=== PATIENT | female | born 1955 | race Caucasian/White ===

== ENCOUNTER 2017-08-08 16:55 | Emergency (ER) | payer OTHER ==
[~2017-08-08] VITALS: Ht 167.6 cm; Wt 107.0 kg
[~2017-08-08 16:55] MED LIST: OXYC7.5T65 PO
[2017-08-08 16:58] VITALS: TEMP 36.7; Ht 167.6 cm; Wt 107.0 kg
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
[2017-08-08] MEDS ORDERED: CYAN10005 PO (17:45)
[2017-08-08] MEDS ORDERED: CHOLDRO3 PO (17:45)
[2017-08-08] MEDS ORDERED: HYDR-3983 PO (17:45)
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
[2017-08-08 19:07] VITALS: BP 177/90; PULSE 71; O2SAT 100
== END 2017-08-08 19:08 | disposition home or self-care (01) ==
LOC: C.EDB 16:57 → C.EDA 19:08
DX: S09.90XA Unspecified injury of head, initial encounter (principal); V43.62XA Car passenger injured in collision with other type car in traffic accident, initial encounter; Y92.410 Unspecified street and highway as the place of occurrence of the external cause; Z85.42 Personal history of malignant neoplasm of other parts of uterus; Z85.858 Personal history of malignant neoplasm of other endocrine glands; Z80.9 Family history of malignant neoplasm, unspecified; Z98.84 Bariatric surgery status

== ENCOUNTER → 2017-08-20 | Outpatient (CLI) | payer OTHER ==
[~2017-08-20] MED LIST changes: +CHOLDRO3 PO; +CYAN10005 PO; +HYDR-3983 PO; -OXYC7.5T65 PO
--- NOTE | 2017-08-20 10:09 | DIAGNOSTIC IMAGING REPORT ---
CERVICAL WITHOUT CONTRAST HISTORY: Pain. Neuropathy. CERVICAL RADICULAR PAIN TECHNIQUE: Multiplanar multisequence MRI of the cervical spine was performed without the use of contrast. COMPARISON STUDY: None. FINDINGS: Findings consistent with an anterior C6-C7 fusion. Degenerative disc change C5-C6 and to a lesser extent throughout the remainder of the cervical region. Signal characteristics of the cervical cord are unremarkable. C2-C3: No significant central canal or neural foraminal narrowing. C3-C4: Minimal central disc bulge. No impact of the cervical cord or neural foramina. C4-C5: Minimal broad-based disc bulge. Contact with but no significant deformity of the cervical cord. C5-C6: Focal left posterior disc herniation. Focal impact left anterior aspect cervical cord. Significant narrowing left neural foramina. Minimal narrowing right neuroforamina. C6-C7: Right central bulging disc. Minimal impact anterior cervical cord. Moderate narrowing right neuroforamina. C7-T1: No significant central canal or neural foraminal narrowing. IMPRESSION: 1. Anterior cervical fusion C6-C7 2. Focal left posterior disc herniation C5-C6 with focal impact upon the anterior cervical cord and significant narrowing left neuroforamina. 3. Right central bulging disc C6-C7 The above report was generated using voice recognition software. It may contain grammatical, syntax or spelling errors. Electronically signed by: Norman Escobar M.D. 08/20/2017 10:07 AM Dictated Date/Time: 08/20/2017 10:01 AM
== END | disposition home or self-care (01) ==
LOC: C.MRI 09:00
PROVIDERS: ATTEND Pain Medicine Interventional Pain Medicine
DX: M50.10 Cervical disc disorder with radiculopathy, unspecified cervical region (principal); M43.22 Fusion of spine, cervical region

== ENCOUNTER 2017-12-07 14:08 | Emergency (ER) | payer OTHER ==
[~2017-12-07 14:08] MED LIST changes: -CHOLDRO3 PO; -HYDR-3983 PO
[2017-12-07 14:13] VITALS: TEMP 36.7; Ht 167.6 cm
[2017-12-07 15:12] LABS: BASO % 0.2 %; BASO ABS # 0.03 K/uL (0-0.2); EOS % 0.3 %; EOS ABS # 0.05 K/uL (0-0.5); HEMOGLOBIN 10.4 g/dL (12.0-16.0); IG# 0.03 K/uL (0.00-0.02); LYMPH % 17.9 %; LYMPH ABS # 2.87 K/uL (1.2-3.4); MEAN CELL VOLUME 76.7 fL (80-100); MEAN CORPUSCULAR HEMOGLOBIN 24.2 pg (25-34); MEAN CORPUSCULAR HGB CONC 31.5 g/dl (32-36); MEAN PLATELET VOLUME 9.5 fL (7.4-10.4); MONO % 10.5 %; MONO ABS # 1.69 K/uL (0.11-0.59); NEUT % 70.9 %; NEUT ABS # 11.36 K/uL (1.4-6.5); PLATELET COUNT 342 K/uL (130-400); RED CELL DISTRIBUTION WIDTH CV 16.3 % (11.5-14.5); RED CELL DISTRIBUTION WIDTH SD 45.3 fL (36.4-46.3); WHITE BLOOD COUNT 16.03 K/uL (4.8-10.8)
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
[2017-12-07 15:39] LABS: ALT/SGPT 14 U/L (12-78); AST/SGOT 17 U/L (15-37); BLOOD UREA NITROGEN 13 mg/dl (7-18); CALCIUM 8.7 mg/dl (8.5-10.1); CARBON DIOXIDE 26 mmol/L (21-32); GLUCOSE 85 mg/dl (70-99); POTASSIUM 3.2 mmol/L (3.5-5.1); SODIUM 140 mmol/L (136-145)
[2017-12-07 15:42] LABS: ALKALINE PHOSPHATASE 94 U/L (45-117); TOTAL PROTEIN 7.2 gm/dl (6.4-8.2)
[2017-12-07] MEDS ORDERED: MoRPHine SULFATE 2 MG/ML CARP IV STA ×2 (16:18→17:36)
--- NOTE | 2017-12-07 16:30 | DIAGNOSTIC IMAGING REPORT ---
L FOREARM 2 VIEWS ROUTINE, L HAND MIN 3 VIEWS ROUTINE HISTORY: 61 years-old Female Fall, L wrist pain acute left hand and wrist pain status post fall COMPARISON: None available TECHNIQUE: 2 views of the left forearm and 3 views of the left hand FINDINGS: FOREARM: Bones are mildly demineralized. Mild soft tissue swelling of the mid dorsal forearm without acute fracture, dislocation or opaque foreign body. HAND: Bones are mildly demineralized. Mild radiocarpal with mild to moderate triscaphe and first carpometacarpal osteoarthritis. At least mild degenerative changes are seen throughout the interphalangeal joints. There is no acute fracture or dislocation identified. There is moderate soft tissue swelling about the dorsal wrist with an ill-defined lucency of the dorsal distal radius seen only on the lateral projection. IMPRESSION: 1. Moderate soft tissue swelling about the wrist without acute displaced fracture or dislocation identified. Ill-defined linear lucency about the distal radial metaphysis seen only on the lateral projection suggests trabecular markings with acute nondisplaced fracture thought to be less likely. Correlate with point tenderness. 2. Mildly demineralized appearance of the bones. 3. Degenerative changes as above. The above report was generated using voice recognition software. It may contain grammatical, syntax or spelling errors. Electronically signed by: Manjit Esquivel M.D. 12/07/2017 4:29 PM Dictated Date/Time: 12/07/2017 4:25 PM
--- NOTE | 2017-12-07 16:57 | DIAGNOSTIC IMAGING REPORT ---
SACRUM COCCYX MIN 2 VIEWS CLINICAL HISTORY: 61 years-old Female presenting with Fall, tailbone pain. TECHNIQUE: Frontal and lateral views of the sacrum and coccyx were obtained. COMPARISON: None. FINDINGS: Sacroiliac joints symmetric and congruent. Arcuate lines intact. Osteopenia suspected. Poor visualization of the coccyx. Allowing for this, no gross malalignment at the sacrococcygeal articulation. No displaced fracture is apparent. Visualized portion of the bony pelvis intact. Bilateral hips congruent. No radiographic soft tissue abnormality. IMPRESSION: Suspected osteopenia limits evaluation for fracture allowing for this, no gross evidence of sacrococcygeal fracture. If there is continuing clinical concern, CT should be obtained given the limited sensitivity of these radiographs. Electronically signed by: Palomo Meehan M.D. 12/07/2017 4:56 PM Dictated Date/Time: 12/07/2017 4:55 PM
[2017-12-07] MEDS ORDERED: POTASSIUM CHLORIDE 20 MEQ TABCR PO STA (17:36)
[2017-12-07] MEDS ORDERED: HYDR-5688 PO (17:41)
[2017-12-07] MEDS ORDERED: CYAN100048 SQ (17:41)
[2017-12-07] MEDS ORDERED: SERT-234 PO (17:41)
[2017-12-07] MEDS ORDERED: PEDICHW50 PO (17:41)
[2017-12-07] MEDS ORDERED: GABA-113 PO (17:41)
[2017-12-07] MEDS ORDERED: HYDR-3983 PO (17:45)
[2017-12-07] MEDS ORDERED: CHOLDRO3 PO (17:45)
[2017-12-07] MEDS ORDERED: POTASSIUM CHLORIDE 10 MEQ TABCR ONE (17:48)
[2017-12-07 18:21] VITALS: BP 139/87; PULSE 80; O2SAT 96
== END 2017-12-07 18:15 | disposition home or self-care (01) ==
LOC: C.EDB 14:10 → C.EDA 18:15
DX: S69.92XA Unspecified injury of left wrist, hand and finger(s), initial encounter (principal); W18.09XA Striking against other object with subsequent fall, initial encounter; D64.9 Anemia, unspecified; E87.6 Hypokalemia; M53.3 Sacrococcygeal disorders, not elsewhere classified; Z85.42 Personal history of malignant neoplasm of other parts of uterus; Z80.9 Family history of malignant neoplasm, unspecified; Z79.899 Other long term (current) drug therapy

== ENCOUNTER 2022-09-27 18:49 | Inpatient (IN) ==
[2022-09-27] MEDS ORDERED: MoRPHine SULFATE 4 MG/ML 1 ML CARP\\VIAL IV STA ×2 (19:10→20:38)
[2022-09-27] MEDS ORDERED: ONDANSETRON INJ 2 MG/ML 2 ML VIAL IV STA (19:10)
--- NOTE | 2022-09-27 19:13 | Emergency Department Note ---
Impression & Plan Fracture of lumbar spine ADMIT ED Provider Note HPI: The patient is a 66-year-old female who presents the emergency department with a chief complaint of left foot pain and lower back pain that occurred after she fell off of the toilet today. Patient states that she got up from the toilet today and her left foot had a sensation as if it had fallen asleep, she then fe ll and she got up and twisted her left foot feeling a "pop" in the lateral aspect of the foot. Patient states she then fell on her buttocks and felt some abnormal sensation in her lower/mid back that was acutely painful. On arrival here to the ED the patient is alert, she does not have any focal deficits, she is noted to be hypertensive and states she does have acute pain in both her left foot as well as her mid back area. Motor and sensory function is intact distally in the lower extremities on arrival. ROS: - Per HPI *Outpatient medications and allergy history reviewed. *Pertinent external medical records reviewed. PE: General: Alert, obese HEENT: Normocephalic, trachea midline Eyes: Extraocular eye movement is intact, no scleral erythema Pulmonary: Clear to auscultation bilaterally, no wheezing Cardio: Regular rate and rhythm GI: Abdomen is soft to palpation : No suprapubic tenderness MSK: No evidence of trauma or malformation of the extremities, no edema, there is some midline tenderness in the area of the thoracolumbar junction to palpation without step-off deformity or fluctuance, contusion with hematoma to the lateral aspect of the left foot, palpable dorsalis pedis pulse is appreciated in the left lower extremity, motor function is intact distally in the left foot Skin: No evidence of rash Neuro: Alert, no focal deficits Psychiatric: Cooperative lunchroom monitor: (As interpreted by myself): - An order was placed for continuous cardiac monitoring - Patient was noted to be in sinus rhythm with a rate of 70 Interventions provided in ED: -IV morphine, IV Zofran, IV fluid bolus Differential Diagnosis: Metatarsal fracture, lumbar spine fracture, pelvic fracture, intra-abdominal trauma, ankle fracture, hypertensive emergency,, amongst other potential pathologies. Medical Decision Making: Patient presented to the emergency department with acute lower back pain as well as left foot pain after she fell off the toilet today. On arrival here to the ED the patient is alert, she is hypertensive, she is otherwise in no acute distress and she is saturating well on room air. IV was established and lab work ordered, patient was given a dose of IV morphine for pain as well as Zofran and IV fluids. CT imaging of the thoracic spine, lumbar spine, as well as x-ray imaging of the left foot were ordered. CT imaging of the lumbar spine does show evidence of compression fracture at L1, no evidence of any involvement of the posterior elements. No evidence of thoracic spine fracture or fracture at other levels of the lumbar spine. X-ray imaging per my interpretation shows evidence of a dancers fracture/styloid fracture of the fifth metatarsal of the left foot. Patient will be placed in a walking boot with weightbearing as tolerated. Following IV morphine here in the ED patient states her pain is much improved, she appears much more comfortable on reassessment. I discussed all of the above findings with the patient, at this time given her back pain and need for walking boot with fifth metatarsal fracture, patient is requesting admission for pain control, PT OT, and orthopedic consultation in regards to lumbar spine compression fracture at L1. Case was discussed with on-call spinal surgery, Dr. Lucio, who was in agreement for consultation, based off imaging performed tonight there would not be an indication for emergent surgical intervention. He is in agreement to see the patient for routine consultation. Case was then discussed with on-call hospitalist, Dr. Martin, and the patient was placed for admission in stable con dition. Consultants: -Orthopedic surgery, Dr. Lucio -Hospitalist service, Dr. Martin Disposition discussion held by myself with: Patient Diagnosis: 1. L1 compression fracture 2. 5th metatarsal fracture, L foot, distal/styloid 3. Mechanical fall 4. Ambulatory dysfunction Disposition: ADMIT Norman Miranda DO Emergency Medicine Past Med/Surg History Medical History Anxiety Blindness "blind spots" Chronic back pain Depression Hypertension Migraine Morbid obesity Osteoarthritis Peptic ulcer disease hx Post traumatic stress disorder Sleep apnea does not use machine. Uterine cancer Surgical History Cervical vertebral fusion C4-C5 ARTHROPLASTY, C5-C6 FUSION H/O gastric bypass x2 History of back surgery back nerve ablations History of biopsy of temporal artery History of cholecystectomy OPEN History of colonoscopy History of esophagogastroduodenoscopy (EGD) History of hysterectomy History of left cataract surgery Family History Mother Lung cancer Brother Diabetes Social History Smoking Status: Never smoker Cigarettes Per Day: 1985; Second Hand Exposure: No; Hx Alcohol Use: Yes Alcohol type: wine Hx Substance Use: No Preferred Language: Ukrainian Communication Ability: Effective Elastic Attacher Overlock Required: No Beliefs That Will Affect Care: None and Jew Jew Beliefs: IN EVENT OF WOULD LIKE LAST RIGHT Current Living Situation: Spouse Feels Safe at Home: Yes Assistive Devices: Cane, Denture - Upper, Glasses and Mechanical Lift Allergies Allergies Allergy/AdvReac Type Severity Reaction Status Date / Time clindamycin Allergy Intermediate ITCHING Verified 09/27/22 20:23 iodine Allergy Intermediate ITCHY RASH Verified 09/27/22 20:23 Penicillins Allergy Intermediate HIVES Verified 09/27/22 20:23 povidone-iodine Allergy Intermediate ITCHY RASH Verified 09/27/22 20:23 [From Betadine] shellfish derived Allergy Intermediate TINGLING Verified 09/27/22 20:23 OF TONGUE ibuprofen AdvReac Intermediate HX OF Verified 09/27/22 20:23 STOMACH ULCERS--Gastrointestinal Upset NSAIDS (Non-Steroidal AdvReac Intermediate HX STOMACH Verified 09/27/22 20:23 Anti-Inflamma ULCERS---Gastrointestinal Upset scented lotions/perfumes Allergy Intermediate itching Uncoded 09/27/22 20:23 Home Meds Home Medications Medication Instructions Recorded Confirmed hydrocodone 5 mg-acetaminophen 325 1 tab PO Q3H PRN Severe Pain 01/24/19 09/27/22 mg tablet (Scale Score 7-10) sumatriptan succinate 100 mg tablet 100 mg PO UD PRN Migraine Headache 01/24/19 09/27/22 cyanocobalamin (vitamin B-12) 1,000 mcg IM MONTHLY 10/01/20 09/27/22 1,000 mcg/mL injection solution galcanezumab-gnlm 120 mg/mL 120 mg subcut MONTHLY 10/01/20 09/27/22 subcutaneous pen injector (Emgality Pen) morphine 15 mg tablet,extended 15 mg PO Q12H 10/01/20 09/27/22 release omeprazole 20 mg capsule,delayed 20 mg PO DAILY 10/01/20 09/27/22 release bupropion HCl 100 mg tablet 100 mg PO TID 09/27/22 09/27/22 cholecalciferol (vitamin D3) 50 50 mcg PO DAILY 09/27/22 09/27/22 mcg (2,000 unit) capsule (Vitamin D3) cyclobenzaprine 5 mg tablet 5 mg PO HS PRN MUSCLE SPASMS 09/27/22 09/27/22 diclofenac sodium 1 % topical gel 4 g topical QID PRN Pain 09/27/22 09/27/22 venlafaxine 37.5 mg tablet 37.5 mg PO TID 09/27/22 09/27/22 Results & Data (ED) Vital Signs Vital Signs - 24 hr 09/27/22 18:54 09/27/22 19:00 09/27/22 19:34 Temperature 36.8 C Temperature Source Oral Pulse Rate 72 72 Pulse Rate [Right Finger] 73 Respiratory Rate 20 16 Respiratory Effort / Characteristics Non-Labored Spontaneous Respiratory Depth Normal Respiratory Pattern Regular Blood Pressure 230/112 H Blood Pressure [Right Arm] Blood Pressure Mean 151 Blood Pressure Mean [Right Arm] Pulse Oximetry 98 97 Oxygen Delivery Method Room Air Room Air Sepsis Recent Fever Within 48 Hours No Sepsis New/Unexplained Change in Mental Status N/A Sepsis Action Taken by Nursing No Action Required 09/27/22 20:16 Temperature Temperature Source Pulse Rate Pulse Rate [Right Finger] 69 Respiratory Rate 16 Respiratory Effort / Characteristics Respiratory Depth Respiratory Pattern Blood Pressure Blood Pressure [Right Arm] 171/75 H Blood Pressure Mean Blood Pressure Mean [Right Arm] 107 Pulse Oximetry 98 Oxygen Delivery Method Room Air Sepsis Recent Fever Within 48 Hours Sepsis New/Unexplained Change in Mental Status Sepsis Action Taken by Nursing Laboratory Data 09/27/22 18:58 09/27/22 18:58 Lab Results 09/27/22 09/27/22 09/27/22 Range/Units 18:58 18:58 18:58 WBC 7.95 (4.8-10.8) K/ul RBC 4.51 (4.20-5.40) M/uL Hgb 13.6 (12.0-16.0) g/dl Hct 42.1 (37.0-47.0) % MCV 93.3 (80.0-100.0) fL MCH 30.2 (25.0-34.0) pg MCHC 32.3 (32.0-36.0) g/dL RDW Std Deviation 45.5 (36.4-46.3) fL RDW Coeff of David 13.3 (11.5-14.5) % Plt Count 317 (130-400) K/uL MPV 9.9 (9.4-12.4) fL Immature Gran % (Auto) 0.9 % Neut % (Auto) 73.4 % Lymph % (Auto) 15.8 % Sharp % (Auto) 6.5 % Eos % (Auto) 2.6 % Baso % (Auto) 0.8 % Neut # (Auto) 5.83 (1.40-6.50) K/uL Lymph # (Auto) 1.26 (1.2-3.4) K/uL Sharp # (Auto) 0.52 (0.11-0.59) K/uL Eos # (Auto) 0.21 (0-0.50) K/uL Baso # (Auto) 0.06 (0-0.2) K/uL Immature Gran # (Auto) 0.07 (0.01-0.20) K/uL PT 10.7 (9.0-12.0) Seconds INR 1.0 (0.9-1.1) Sodium 138 (136-145) mmol/L Potassium 4.5 (3.5-5.1) mmol/L Chloride 105 (98-107) mmol/L Carbon Dioxide 28 (21-32) mmol/L Anion Gap 5 (3-11) BUN 15 (6-23) mg/dl Creatinine 1.06 (0.6-1.2) mg/dl Est Cr Clr Drug Dosing 66.4 ml/min Est GFR ( Amer) 63.4 ml/min Est GFR (Non-Af Amer) 54.7 ml/min BUN/Creatinine Ratio 14.2 (10-20) Glucose 95 (70-99(Fasting)) mg/dl Calcium 9.2 (8.5-10.1) mg/dl Total Bilirubin 0.6 (0.2-1.0) mg/dl AST 24 (13-39) U/L ALT 12 (7-52) U/L Alkaline Phosphatase 56 (34-104) U/L Total Protein 6.8 (6.0-8.3) gm/dl Albumin 3.6 (3.4-5.0) gm/dl Globulin 3.2 (2.5-4.0) gm/dl Albumin/Globulin Ratio 1.1 (0.9-2) SARS-CoV-2, RNA, NAAT (NEGATIVE) 09/27/22 Range/Units 19:30 WBC (4.8-10.8) K/ul RBC (4.20-5.40) M/uL Hgb (12.0-16.0) g/dl Hct (37.0-47.0) % MCV (80.0-100.0) fL MCH (25.0-34.0) pg MCHC (32.0-36.0) g/dL RDW Std Deviation (36.4-46.3) fL RDW Coeff of David (11.5-14.5) % Plt Count (130-400) K/uL MPV (9.4-12.4) fL Immature Gran % (Auto) % Neut % (Auto) % Lymph % (Auto) % Sharp % (Auto) % Eos % (Auto) % Baso % (Auto) % Neut # (Auto) (1.40-6.50) K/uL Lymph # (Auto) (1.2-3.4) K/uL Sharp # (Auto) (0.11-0.59) K/uL Eos # (Auto) (0-0.50) K/uL Baso # (Auto) (0-0.2) K/uL Immature Gran # (Auto) (0.01-0.20) K/uL PT (9.0-12.0) Seconds INR (0.9-1.1) Sodium (136-145) mmol/L Potassium (3.5-5.1) mmol/L Chloride (98-107) mmol/L Carbon Dioxide (21-32) mmol/L Anion Gap (3-11) BUN (6-23) mg/dl Creatinine (0.6-1.2) mg/dl Est Cr Clr Drug Dosing ml/min Est GFR ( Amer) ml/min Est GFR (Non-Af Amer) ml/min BUN/Creatinine Ratio (10-20) Glucose (70-99(Fasting)) mg/dl Calcium (8.5-10.1) mg/dl Total Bilirubin (0.2-1.0) mg/dl AST (13-39) U/L ALT (7-52) U/L Alkaline Phosphatase (34-104) U/L Total Protein (6.0-8.3) gm/dl Albumin (3.4-5.0) gm/dl Globulin (2.5-4.0) gm/dl Albumin/Globulin Ratio (0.9-2) SARS-CoV-2, RNA, NAAT NEGATIVE (NEGATIVE) Administered Medications Discontinued Medications Morphine Sulfate (Morphine Sulfate 4 Mg/Ml 1 Ml Carp\\Vial) 4 mg IV NOW STA Stop: 09/27/22 19:11 Last Admin: 09/27/22 19:16 Dose: 4 mg Documented By: ASW Morphine Sulfate (Morphine Sulfate 4 Mg/Ml 1 Ml Carp\\Vial) 4 mg IV NOW STA Stop: 09/27/22 20:39 Last Admin: 09/27/22 20:55 Dose: 4 mg Documented By: ASW Ondansetron HCl (Ondansetron Inj 2 Mg/Ml 2 Ml Vial) 4 mg IV NOW STA Stop: 09/27/22 19:11 Last Admin: 09/27/22 19:16 Dose: 4 mg Documented By: ASW Imaging Data Radiologist's Impression: Lumbar Spine CT 09/27/22 19:11 Exam(s): CT L SPINE EXAM: CT Lumbar Spine Without Intravenous Contrast CLINICAL HISTORY: Yue Trauma. TECHNIQUE: Axial computed tomography images of the lumbar spine without intravenous contrast. CTDI is 29.23 mGy and DLP is 1959.58 mGy-cm. Automated exposure control was utilized for the study. A dose lowering technique was utilized adhering to the principles of ALARA. COMPARISON: No relevant prior studies available. FINDINGS: Vertebrae: There is an acute compression fracture involving the L1 vertebral body with involvement of the right lateral endplate and superolateral right vertebral body cortex. There is focal depression of the vertebral body in a Schmorl's node type configuration, with more diffuse sclerosis and cortical irregularity along the superior endplate with only mild depression noted involving the left vertebral body. The loss of height at the focal depression is approximately 20%. The degree of height loss involving the left lateral vertebral body is approximately 5-10%. There is minimal buckling of the anterior cortex. There is no extension to the posterior cortex. No involvement of the pedicles or posterior elements. The remaining lumbar vertebral bodies demonstrate normal height without compression fracture. No anterolisthesis or retrolisthesis noted. The pedicles, facet joints, spinous processes and transverse processes are intact. Discs/spinal canal/neural foramina: Disc space narrowing with marginal hypertrophic changes and vacuum phenomenon are most notable at L2-3 and L4-5. Facet hypertrophic changes are noted at several levels bilaterally. Soft tissues: Unremarkable. IMPRESSION: 1. There is an acute compression fracture involving the L1 vertebral body with involvement of the right lateral endplate and superolateral right vertebral body cortex. There is focal depression of the vertebral body in a Schmorl's node type configuration, with more diffuse sclerosis and cortical irregularity along the superior endplate with only mild depression noted involving the left vertebral body. The loss of height at the focal depression is approximately 20%. The degree of height loss involving the left lateral vertebral body is approximately 5-10%. There is minimal buckling of the anterior cortex. There is no extension to the posterior cortex. No involvement of the pedicles or posterior elements. 2. The remaining lumbar vertebral bodies are intact without acute traumatic injury or significant acute traumatic abnormal alignment. Electronically signed by: Chris Aguilar MD 09/27/22 20:[address] 09/27/22 19:11 Exam(s): CT T SPINE EXAM: CT Thoracic Spine Without Intravenous Contrast CLINICAL HISTORY: Trauma. TECHNIQUE: Axial computed tomography images of the thoracic spine without intravenous contrast. CTDI is 29.23 mGy and DLP is 1959.58 mGy-cm. Automated exposure control was utilized for the study. A dose lowering technique was utilized adhering to the principles of ALARA. COMPARISON: No relevant prior studies available. FINDINGS: Vertebrae: There is an acute compression fracture involving the L1 vertebral body with involvement of the right lateral endplate and superolateral right vertebral body cortex. The L1 vertebral body is incompletely included. However, there is focal depression of the vertebral body and a Schmorl's node type configuration with more diffuse sclerosis and cortical irregularity noted. No extension to the posterior cortex noted, where included. No definite involvement of the pedicles. The posterior elements are incompletely included. The thoracic vertebral bodies are intact without compression fracture. No anterolisthesis or retrolisthesis. The pedicles and posterior elements are intact. Incidental note is made of a right C7 cervical rib. Anterior hypertrophic osteophyte changes noted at several intervertebral levels. Discs/spinal canal/neural foramina: No acute findings. No spinal canal stenosis. Soft tissues: Unremarkable. No significant acute paraspinal soft tissue abnormality identified. IMPRESSION: 1. There is an acute compression fracture involving the L1 vertebral body with involvement of the right lateral endplate and superolateral right vertebral body cortex. The L1 vertebral body is incompletely included. However, there is focal depression of the vertebral body and a Schmorl's node type configuration with more diffuse sclerosis and cortical irregularity noted. No extension to the posterior cortex noted, where included. No definite involvement of the pedicles. The posterior elements are incompletely included. 2. No acute traumatic injury or significant abnormal alignment involving the thoracic spine. 3. Incidental right cervical C7 rib. Electronically signed by: Chris Aguilar MD 09/27/22 20:30 PM Discharge Plan Visit Data Chief Complaint: Back Injury/Pain Stated Complaint: L FOOT & BACK PAIN ED Provider: Norman Miranda Discharge Problem: Fracture of lumbar spine Patient Disposition: Admitted As Inpatient Forms Stand Alone Forms: [facility], [facility] Prescriptions Prescriptions: No Action sumatriptan succinate 100 mg Tablet 100 mg PO UD PRN (Reason: Migraine Headache) hydrocodone-acetaminophen 5-325 mg Tablet 1 tab PO Q3H PRN (Reason: Severe Pain (Scale Score 7-10)) cyanocobalamin (vitamin B-12) 1,000 mcg/mL Solution 1,000 mcg IM MONTHLY omeprazole 20 mg Capsule,Delayed Release(Dr/Ec) 20 mg PO DAILY morphine 15 mg Tablet Extended Release 15 mg PO Q12H Emgality Pen 120 mg/mL Pen Injector 120 mg SUBCUT MONTHLY bupropion HCl 100 mg tablet 100 mg PO TID venlafaxine 37.5 mg tablet 37.5 mg PO TID cyclobenzaprine 5 mg tablet 5 mg PO HS PRN (Reason: MUSCLE SPASMS) diclofenac sodium [Voltaren] 1 % Gel 4 g TOPICAL QID PRN (Reason: Pain) cholecalciferol (vitamin D3) [Vitamin D3] 50 mcg (2,000 unit) Capsule 50 mcg PO DAILY Referrals Referrals: Palomo Brooks MD [Primary Care Provider] -
[2022-09-27 19:29] LABS: Basophils # (auto) 0.06 K/uL (0-0.2); Basophils % (auto) 0.8 %; Eosinophils # (auto) 0.21 K/uL (0-0.50); Eosinophils % (auto) 2.6 %; Hematocrit (blood only) 42.1 % (37.0-47.0); Hemoglobin 13.6 g/dl (12.0-16.0); Immature Granulocytes # (auto) 0.07 K/uL (0.01-0.20); Immature Granulocytes % (auto) 0.9 %; Lymphocytes # (auto) 1.26 K/uL (1.2-3.4); Lymphocytes % (auto) 15.8 %; Mean Corpuscular Hemoglobin 30.2 pg (25.0-34.0); Mean Corpuscular Hgb Conc 32.3 g/dL (32.0-36.0); Mean Corpuscular Volume 93.3 fL (80.0-100.0); Mean Platelet Volume 9.9 fL (9.4-12.4); Monocytes # (auto) 0.52 K/uL (0.11-0.59); Monocytes % (auto) 6.5 %; Neutrophils # (auto) 5.83 K/uL (1.40-6.50); Neutrophils % (auto) 73.4 %; Platelet Count 317 K/uL (130-400); RDW Coefficient of Variation 13.3 % (11.5-14.5); RDW Standard Deviation 45.5 fL (36.4-46.3); Red Blood Count 4.51 M/uL (4.20-5.40); White Blood Count 7.95 K/ul (4.8-10.8)
[2022-09-27 19:48] LABS: Albumin Globulin Ratio 1.1 (0.9-2); Albumin Level 3.6 gm/dl (3.4-5.0); BUN Creatinine Ratio 14.2 (10-20); Bilirubin,Total 0.6 mg/dl (0.2-1.0); Calcium 9.2 mg/dl (8.5-10.1); Creatinine Clr Calc Pharmacy 66.4 ml/min; Est GFR (African American) 63.4 ml/min; Est GFR (Non-African American) 54.7 ml/min; Globulin 3.2 gm/dl (2.5-4.0); Potassium 4.5 mmol/L (3.5-5.1); Total Protein 6.8 gm/dl (6.0-8.3)
[2022-09-27 20:01] LABS: Prothrombin Time 10.7 Seconds (9.0-12.0)
--- NOTE | 2022-09-27 20:31 | CT Scan Report ---
Exam(s): CT T SPINE EXAM: CT Thoracic Spine Without Intravenous Contrast CLINICAL HISTORY: Trauma. TECHNIQUE: Axial computed tomography images of the thoracic spine without intravenous contrast. CTDI is 29.23 mGy and DLP is 1959.58 mGy-cm. Automated exposure control was utilized for the study. A dose lowering technique was utilized adhering to the principles of ALARA. COMPARISON: No relevant prior studies available. FINDINGS: Vertebrae: There is an acute compression fracture involving the L1 vertebral body with involvement of the right lateral endplate and superolateral right vertebral body cortex. The L1 vertebral body is incompletely included. However, there is focal depression of the vertebral body and a Schmorl's node type configuration with more diffuse sclerosis and cortical irregularity noted. No extension to the posterior cortex noted, where included. No definite involvement of the pedicles. The posterior elements are incompletely included. The thoracic vertebral bodies are intact without compression fracture. No anterolisthesis or retrolisthesis. The pedicles and posterior elements are intact. Incidental note is made of a right C7 cervical rib. Anterior hypertrophic osteophyte changes noted at several intervertebral levels. Discs/spinal canal/neural foramina: No acute findings. No spinal canal stenosis. Soft tissues: Unremarkable. No significant acute paraspinal soft tissue abnormality identified. IMPRESSION: 1. There is an acute compression fracture involving the L1 vertebral body with involvement of the right lateral endplate and superolateral right vertebral body cortex. The L1 vertebral body is incompletely included. However, there is focal depression of the vertebral body and a Schmorl's node type configuration with more diffuse sclerosis and cortical irregularity noted. No extension to the posterior cortex noted, where included. No definite involvement of the pedicles. The posterior elements are incompletely included. 2. No acute traumatic injury or significant abnormal alignment involving the thoracic spine. 3. Incidental right cervical C7 rib. Electronically signed by: Chris Aguilar MD 09/27/22 20:30 PM
--- NOTE | 2022-09-27 20:46 | CT Scan Report ---
Exam(s): CT L SPINE EXAM: CT Lumbar Spine Without Intravenous Contrast CLINICAL HISTORY: Yue Trauma. TECHNIQUE: Axial computed tomography images of the lumbar spine without intravenous contrast. CTDI is 29.23 mGy and DLP is 1959.58 mGy-cm. Automated exposure control was utilized for the study. A dose lowering technique was utilized adhering to the principles of ALARA. COMPARISON: No relevant prior studies available. FINDINGS: Vertebrae: There is an acute compression fracture involving the L1 vertebral body with involvement of the right lateral endplate and superolateral right vertebral body cortex. There is focal depression of the vertebral body in a Schmorl's node type configuration, with more diffuse sclerosis and cortical irregularity along the superior endplate with only mild depression noted involving the left vertebral body. The loss of height at the focal depression is approximately 20%. The degree of height loss involving the left lateral vertebral body is approximately 5-10%. There is minimal buckling of the anterior cortex. There is no extension to the posterior cortex. No involvement of the pedicles or posterior elements. The remaining lumbar vertebral bodies demonstrate normal height without compression fracture. No anterolisthesis or retrolisthesis noted. The pedicles, facet joints, spinous processes and transverse processes are intact. Discs/spinal canal/neural foramina: Disc space narrowing with marginal hypertrophic changes and vacuum phenomenon are most notable at L2-3 and L4-5. Facet hypertrophic changes are noted at several levels bilaterally. Soft tissues: Unremarkable. IMPRESSION: 1. There is an acute compression fracture involving the L1 vertebral body with involvement of the right lateral endplate and superolateral right vertebral body cortex. There is focal depression of the vertebral body in a Schmorl's node type configuration, with more diffuse sclerosis and cortical irregularity along the superior endplate with only mild depression noted involving the left vertebral body. The loss of height at the focal depression is approximately 20%. The degree of height loss involving the left lateral vertebral body is approximately 5-10%. There is minimal buckling of the anterior cortex. There is no extension to the posterior cortex. No involvement of the pedicles or posterior elements. 2. The remaining lumbar vertebral bodies are intact without acute traumatic injury or significant acute traumatic abnormal alignment. Electronically signed by: Chris Aguilar MD 09/27/22 20:45 PM
[2022-09-28] MEDS ORDERED: SODIUM CHLORIDE 0.9% 1000ML 1,000 ML IV SCH (00:20)
[2022-09-28] MEDS ORDERED: POLYETHYLENE (MIRALAX) 17 GM PACK PO PRN (00:20)
[2022-09-28] MEDS ORDERED: ACETAMINOPHEN 325 MG TAB PO PRN (00:20)
[2022-09-28] MEDS ORDERED: DICLOFENAC SOD 1% GEL 100 GM TUBE EXT PRN (00:20)
[2022-09-28] MEDS ORDERED: CYCLOBENZAPRINE HCL 5 MG TAB PO PRN (00:20)
[2022-09-28] MEDS: HYDROCODONE/ACETAMOPHEN 5/325MG TAB PO PRN ×2 (00:55→22:10)
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
[2022-09-28] MEDS: HYDROmorphone INJ 0.5 MG/0.5 ML SYR IV PRN ×4 (02:30→18:41)
[2022-09-28 05:54] LABS: Basophils # (auto) 0.06 K/uL (0-0.2); Basophils % (auto) 0.7 %; Eosinophils # (auto) 0.17 K/uL (0-0.50); Hematocrit (blood only) 38.2 % (37.0-47.0); Hemoglobin 12.2 g/dl (12.0-16.0); Immature Granulocytes # (auto) 0.04 K/uL (0.01-0.20); Immature Granulocytes % (auto) 0.5 %; Lymphocytes # (auto) 1.44 K/uL (1.2-3.4); Lymphocytes % (auto) 16.7 %; Mean Corpuscular Hemoglobin 30.1 pg (25.0-34.0); Mean Corpuscular Hgb Conc 31.9 g/dL (32.0-36.0); Mean Corpuscular Volume 94.3 fL (80.0-100.0); Mean Platelet Volume 9.7 fL (9.4-12.4); Monocytes % (auto) 9.3 %; Neutrophils # (auto) 6.13 K/uL (1.40-6.50); Neutrophils % (auto) 70.8 %; Platelet Count 272 K/uL (130-400); RDW Coefficient of Variation 13.4 % (11.5-14.5); RDW Standard Deviation 46.7 fL (36.4-46.3); Red Blood Count 4.05 M/uL (4.20-5.40); White Blood Count 8.64 K/ul (4.8-10.8)
[2022-09-28 06:03] LABS: BUN Creatinine Ratio 13.1 (10-20); Calcium 8.8 mg/dl (8.5-10.1); Creatinine Clr Calc Pharmacy 64.5 ml/min; Est GFR (African American) 62.7 ml/min; Est GFR (Non-African American) 54.1 ml/min; Magnesium 2.1 mg/dl (1.7-2.4); Potassium 4.5 mmol/L (3.5-5.1)
--- NOTE | 2022-09-28 07:19 | XRay Report ---
RIGHT FOOT 3 VIEWS CLINICAL HISTORY: Fall. Right foot injury. FINDINGS: 3 views of the right foot are obtained. No prior studies are available for comparison at th e time of dictation. The skeletal structures are osteopenic. There is a minimally displaced fracture through the base of the fifth metatarsal with overlying soft tissue edema. No additional acute fractu re is seen. There is mild/moderate osteoarthritic change at the first metatarsophalangeal joint. Dege nerative change is also seen at the tarsometatarsal joints. Degenerative spurring is seen along the d orsal aspect of the tarsal bones. There are large dorsal and plantar heel spurs. IMPRESSION: Mildly displaced fracture through the base of the fifth metatarsal. Electronically signed by: Edward Cavazos M.D. 09/28/2022 7:18 AM
--- NOTE | 2022-09-28 08:24 | Orthopedic Consultation ---
Date of Consultation September 28, 2022 Assessment & Plan (1) Fracture of lumbar spine: Assessment L1 compression fracture plan at this time a lengthy discussion with this patient regarding her fracture and treatment plan. Most people heal appropriately without surgical intervention. I would recommend she begin occupational therapy physical therapy today see how she tolerates this and we will consider possible transition to home versus rehab depending her progress. I am concerned the brace will not be effective in light of her body habitus but may consider bracing if she fails to tolerate therapy today. History of Present Illness Reason for Consultation: L1 compression fracture Attending Physician: Te Arciniega MD History of Present Illness This is a very pleasant 66-year-old female who presents yesterday after a fall at home sustaining an L1 compression fracture and a left fifth metatarsal fracture. This morning she has back pain with motion particular sitting up. She denies any radicular complaints. She states the medication is helping significantly. She has not been out of bed yet. Allergies Allergy/AdvReac Type Severity Reaction Status Date / Time clindamycin Allergy Intermediate ITCHING Verified 09/27/22 20:23 iodine Allergy Intermediate ITCHY RASH Verified 09/27/22 20:23 Penicillins Allergy Intermediate HIVES Verified 09/27/22 20:23 povidone-iodine Allergy Intermediate ITCHY RASH Verified 09/27/22 20:23 [From Betadine] shellfish derived Allergy Intermediate TINGLING Verified 09/27/22 20:23 OF TONGUE ibuprofen AdvReac Intermediate HX OF Verified 09/27/22 20:23 STOMACH ULCERS--Gastrointestinal Upset NSAIDS (Non-Steroidal AdvReac Intermediate HX STOMACH Verified 09/27/22 20:23 Anti-Inflamma ULCERS---Gastrointestinal Upset scented lotions/perfumes Allergy Intermediate itching Uncoded 09/27/22 20:23 Home Medications Medication Instructions Recorded Confirmed Type hydrocodone 5 mg-acetaminophen 325 1 tab PO Q3H PRN Severe Pain 01/24/19 09/27/22 History mg tablet (Scale Score 7-10) sumatriptan succinate 100 mg tablet 100 mg PO UD PRN Migraine Headache 01/24/19 09/27/22 History cyanocobalamin (vitamin B-12) 1,000 mcg IM MONTHLY 10/01/20 09/27/22 History 1,000 mcg/mL injection solution galcanezumab-gnlm 120 mg/mL 120 mg subcut MONTHLY 10/01/20 09/27/22 History subcutaneous pen injector (Emgality Pen) morphine 15 mg tablet,extended 15 mg PO Q12H 10/01/20 09/27/22 History release omeprazole 20 mg capsule,delayed 20 mg PO DAILY 10/01/20 09/27/22 History release bupropion HCl 100 mg tablet 100 mg PO TID 09/27/22 09/27/22 History cholecalciferol (vitamin D3) 50 50 mcg PO DAILY 09/27/22 09/27/22 History mcg (2,000 unit) capsule (Vitamin D3) cyclobenzaprine 5 mg tablet 5 mg PO HS PRN MUSCLE SPASMS 09/27/22 09/27/22 History diclofenac sodium 1 % topical gel 4 g topical QID PRN Pain 09/27/22 09/27/22 History venlafaxine 37.5 mg tablet 37.5 mg PO TID 09/27/22 09/27/22 History Patient History Medical History Anxiety Blindness "blind spots" Chronic back pain Depression Hypertension Migraine Morbid obesity Osteoarthritis Peptic ulcer disease hx Post traumatic stress disorder Sleep apnea does not use machine. Uterine cancer Surgical History Cervical vertebral fusion C4-C5 ARTHROPLASTY, C5-C6 FUSION H/O gastric bypass x2 History of back surgery back nerve ablations History of biopsy of temporal artery History of cholecystectomy OPEN History of colonoscopy History of esophagogastroduodenoscopy (EGD) History of hysterectomy History of left cataract surgery Family History Mother Lung cancer Brother Diabetes Social History Smoking Status: Never smoker Cigarettes Per Day: 1984; Smoking End Date: many years ago; Second Hand Exposure: No; Hx Alcohol Use: Yes Alcohol type: wine Hx Substance Use: No Preferred Language: Vietnamese Communication Ability: Effective Wedding Consultant Required: No Beliefs That Will Affect Care: Spiritual Spiritual Healthcare Practices: Would like a wildlife control agent notified if condition deteriorates Current Living Situation: Alone Other Information That Helps Us Care for You: No Feels Safe at Home: Yes Safety Concerns: Feels Safe At This Time Assistive Devices: Cane Physical Exam Physical Exam: On exam she does appear comfortable at this time. Has full sensation of the lower extremities. Has a boot on the left foot. Strength is intact lower extremities. Results & Data ([facility]) Vital Signs (Past 12 Hours) Vital Signs Temp Pulse Pulse Pulse Resp BP BP 09/28/22 07:45 36.7 C 62 16 107/53 L 09/28/22 00:36 36.7 C 72 171/78 H 09/28/22 00:24 36.7 C 72 20 184/91 H 09/27/22 23:51 65 19 09/27/22 23:00 69 17 148/64 H 09/27/22 23:01 69 09/27/22 21:48 75 16 Pulse Ox O2 Del Method 09/28/22 07:45 94 Room Air 09/28/22 00:36 94 Room Air 09/28/22 00:24 94 Room Air 09/27/22 23:51 97 Room Air 09/27/22 23:00 98 Room Air 09/27/22 23:01 09/27/22 21:48 97 Room Air (1) Fracture of lumbar spine Encounter type: initial encounter Fracture morphology: unspecified fracture morphology Fracture type: closed Lumbar vertebra fracture level: L1 Qualified Code(s): S32.019A - Unspecified fracture of first lumbar vertebra, initial encounter for closed fracture
[2022-09-28] MEDS: VENLAFAXINE HCL 37.5 MG TAB PO SCH ×3 (09:01→19:49)
[2022-09-28] MEDS: buPROPion HCl 100 MG TABLET PO SCH ×3 (09:01→19:49)
[2022-09-28] MEDS: MoRPHine SULFATE CR 15 MG TABCR PO SCH ×2 (09:01→19:56)
[2022-09-28] MEDS: CHOLECALCIFEROL 1,000 UNITS 25 MCG TAB PO SCH (09:01)
[2022-09-28] MEDS: PANTOprazole 40 MG TAB PO SCH (09:02)
[2022-09-28] MEDS: ENOXAPARIN INJ 40 MG/0.4 ML SYR SQ SCH ×2 (09:02→19:50)
[2022-09-28 10:05] LABS: Appearance Urine Clear (Clear); Bacteria Urine Automated Negative (Negative); Bilirubin Urine Negative (Negative); Blood Urine Negative (Negative); Color Urine Dark Yellow; Epithelial Cell Urine Auto >30 /lpf (0-5); Glucose Urine UA Negative (Negative); Ketones Urine Negative (Negative); Leukocyte Esterase Urine Negative (Negative); Nitrite Urine Negative (Negative); Protein Urine Trace (Negative); RBC Urine Automated 0-4 /hpf (0-4); Specific Gravity Urine 1.024 (1.000-1.030); Urobilinogen Urine Negative (Negative); pH Urine 5.5 (4.5-7.5)
[2022-09-28] MEDS: LIDOCAINE 5% 1 PATCH TD SCH (10:06)
[2022-09-28] MEDS: SUMAtriptan succinate 100 MG TAB PO PRN ×2 (10:29→19:46)
--- NOTE | 2022-09-28 13:47 | Orthopedic Consultation ---
Date of Consultation September 28, 2022 Assessment & Plan (1) Fracture of fifth metatarsal bone: -Continue walking boot to left foot and she may be WBAT to the LLE. -Pt to follow up as an out patient with podiatry in 1-2 weeks for further evaluation. Supervising Physician Co-Signing Physician Notes Imaging reviewed and patient discussed with LAZARA Thomas. Left foot Xrays show a nondisplaced 5th metatarsal base psuedo-Wang avulsion fracture. She may be weight bearing as tolerated in a walking boot to prevent inversion of the foot/ankle. Followup with [facility] (Dr. Cabrera or Andrea) in 1-2 weeks. Please call [facility] at [phone] to make an appointment. Orthopedics will sign off at this point, call with questions. History of Present Illness Reason for Consultation: Left 5th metatarsal fracture Attending Physician: Te Arciniega MD History of Present Illness Patient is a 66-year-old female who presented to the ED last evening after sustaining a fall at home. Patient states she was sitting on the toilet and felt her left leg had "fallen asleep" but still attempted to stand up, resulting in her twisting her left foot/ankle and falling onto her buttock. She denies feeling lightheaded or dizzy prior to the fall. Patient states that when she fell she heard a cracking noise in both her left foot and back. She was ultimately brought to the ED for further evaluation and was found to have a left 5th metatarsal fracture and a L1 compression fracture. Patient was admitted to the medical service and orthopedic team was consulted for further evaluation. At time of evaluation this morning, patient is resting in bed. Patient was given a walking boot and it is in place to her left foot. She currently complains of back pain that is worse with movement and sitting up. States the pain medication is helping at this time. She otherwise denies any CP, SOB, abdominal pain, or new onset of numbness or tingling in her upper or lower extremities. Allergies Allergy/AdvReac Type Severity Reaction Status Date / Time clindamycin Allergy Intermediate ITCHING Verified 09/27/22 20:23 iodine Allergy Intermediate ITCHY RASH Verified 09/27/22 20:23 Penicillins Allergy Intermediate HIVES Verified 09/27/22 20:23 povidone-iodine Allergy Intermediate ITCHY RASH Verified 09/27/22 20:23 [From Betadine] shellfish derived Allergy Intermediate TINGLING Verified 09/27/22 20:23 OF TONGUE ibuprofen AdvReac Intermediate HX OF Verified 09/27/22 20:23 STOMACH ULCERS--Gastrointestinal Upset NSAIDS (Non-Steroidal AdvReac Intermediate HX STOMACH Verified 09/27/22 20:23 Anti-Inflamma ULCERS---Gastrointestinal Upset scented lotions/perfumes Allergy Intermediate itching Uncoded 09/27/22 20:23 Home Medications Medication Instructions Recorded Confirmed Type hydrocodone 5 mg-acetaminophen 325 1 tab PO Q3H PRN Severe Pain 01/24/19 09/27/22 History mg tablet (Scale Score 7-10) sumatriptan succinate 100 mg tablet 100 mg PO UD PRN Migraine Headache 01/24/19 09/27/22 History cyanocobalamin (vitamin B-12) 1,000 mcg IM MONTHLY 10/01/20 09/27/22 History 1,000 mcg/mL injection solution galcanezumab-gnlm 120 mg/mL 120 mg subcut MONTHLY 10/01/20 09/27/22 History subcutaneous pen injector (Emgality Pen) morphine 15 mg tablet,extended 15 mg PO Q12H 10/01/20 09/27/22 History release omeprazole 20 mg capsule,delayed 20 mg PO DAILY 10/01/20 09/27/22 History release bupropion HCl 100 mg tablet 100 mg PO TID 09/27/22 09/27/22 History cholecalciferol (vitamin D3) 50 50 mcg PO DAILY 09/27/22 09/27/22 History mcg (2,000 unit) capsule (Vitamin D3) cyclobenzaprine 5 mg tablet 5 mg PO HS PRN MUSCLE SPASMS 09/27/22 09/27/22 History diclofenac sodium 1 % topical gel 4 g topical QID PRN Pain 09/27/22 09/27/22 History venlafaxine 37.5 mg tablet 37.5 mg PO TID 09/27/22 09/27/22 History Patient History Medical History Anxiety Blindness "blind spots" Chronic back pain Depression Hypertension Migraine Morbid obesity Osteoarthritis Peptic ulcer disease hx Post traumatic stress disorder Sleep apnea does not use machine. Uterine cancer Surgical History Cervical vertebral fusion C4-C5 ARTHROPLASTY, C5-C6 FUSION H/O gastric bypass x2 History of back surgery back nerve ablations History of biopsy of temporal artery History of cholecystectomy OPEN History of colonoscopy History of esophagogastroduodenoscopy (EGD) History of hysterectomy History of left cataract surgery Family History Mother Lung cancer Brother Diabetes Social History Smoking Status: Never smoker Cigarettes Per Day: 1984; Smoking End Date: many years ago; Second Hand Exposure: No; Hx Alcohol Use: Yes Alcohol type: wine Hx Substance Use: No Preferred Language: Kinyarwanda Communication Ability: Effective 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 Beliefs That Will Affect Care: Spiritual Spiritual Healthcare Practices: Would like a coal carrier notified if condition deteriorates Current Living Situation: Alone Other Information That Helps Us Care for You: No Feels Safe at Home: Yes Safety Concerns: Feels Safe At This Time Assistive Devices: Cane and Walker Review of Systems Constitutional: no fever, no chills, no sweats, no weakness and no problem reported Respiratory: no cough, no dyspnea and no problem reported Cardiovascular: no chest pain, no dyspnea, no palpitations and no lightheadedness Gastrointestinal: no abdominal pain, no heartburn, no nausea and no vomiting Musculoskeletal: as per Subjective / HPI Physical Exam Physical Exam: Left foot with boot in place. Boot was removed and there is some mild ecchymosis and tenderness with palpation appreciated over the lateral 5th metatarsal. No gross bony deformities or swelling appreciated. Patient able to wiggle toes without issue, good ROM noted to the ankle, and NVI. Results & Data ([facility]) Vital Signs (Past 12 Hours) Vital Signs Temp Pulse Resp BP Pulse Ox O2 Del Method 09/28/22 07:45 36.7 C 62 16 107/53 L 94 Room Air Laboratory Results Laboratory Results WBC 8.64 K/ul (4.8-10.8) 09/28/22 05:30 RBC 4.05 M/uL (4.20-5.40) L 09/28/22 05:30 Hgb 12.2 g/dl (12.0-16.0) 09/28/22 05:30 Hct 38.2 % (37.0-47.0) 09/28/22 05:30 MCV 94.3 fL (80.0-100.0) 09/28/22 05:30 MCH 30.1 pg (25.0-34.0) 09/28/22 05:30 MCHC 31.9 g/dL (32.0-36.0) L 09/28/22 05:30 RDW Std Deviation 46.7 fL (36.4-46.3) H 09/28/22 05:30 RDW Coeff of David 13.4 % (11.5-14.5) 09/28/22 05:30 Plt Count 272 K/uL (130-400) 09/28/22 05:30 MPV 9.7 fL (9.4-12.4) 09/28/22 05:30 Immature Gran % (Auto) 0.5 % 09/28/22 05:30 Neut % (Auto) 70.8 % 09/28/22 05:30 Lymph % (Auto) 16.7 % 09/28/22 05:30 [place] % (Auto) 9.3 % 09/28/22 05:30 Eos % (Auto) 2.0 % 09/28/22 05:30 Baso % (Auto) 0.7 % 09/28/22 05:30 Neut # (Auto) 6.13 K/uL (1.40-6.50) 09/28/22 05:30 Lymph # (Auto) 1.44 K/uL (1.2-3.4) 09/28/22 05:30 [place] # (Auto) 0.80 K/uL (0.11-0.59) H 09/28/22 05:30 Eos # (Auto) 0.17 K/uL (0-0.50) 09/28/22 05:30 Baso # (Auto) 0.06 K/uL (0-0.2) 09/28/22 05:30 Immature Gran # (Auto) 0.04 K/uL (0.01-0.20) 09/28/22 05:30 PT 10.7 Seconds (9.0-12.0) 09/27/22 18:58 INR 1.0 (0.9-1.1) 09/27/22 18:58 Sodium 137 mmol/L (136-145) 09/28/22 05:30 Potassium 4.5 mmol/L (3.5-5.1) 09/28/22 05:30 Chloride 106 mmol/L (98-107) 09/28/22 05:30 Carbon Dioxide 31 mmol/L (21-32) 09/28/22 05:30 Anion Gap 0 (3-11) L 09/28/22 05:30 BUN 14 mg/dl (6-23) 09/28/22 05:30 Creatinine 1.07 mg/dl (0.6-1.2) 09/28/22 05:30 Est Cr Clr Drug Dosing 64.5 ml/min 09/28/22 05:30 Est GFR ( Amer) 62.7 ml/min 09/28/22 05:30 Est GFR (Non-Af Amer) 54.1 ml/min 09/28/22 05:30 BUN/Creatinine Ratio 13.1 (10-20) 09/28/22 05:30 Glucose 100 mg/dl (70-99(Fasting)) H 09/28/22 05:30 Calcium 8.8 mg/dl (8.5-10.1) 09/28/22 05:30 Magnesium 2.1 mg/dl (1.7-2.4) 09/28/22 05:30 Total Bilirubin 0.6 mg/dl (0.2-1.0) 09/27/22 18:58 AST 24 U/L (13-39) 09/27/22 18:58 ALT 12 U/L (7-52) 09/27/22 18:58 Alkaline Phosphatase 56 U/L (34-104) 09/27/22 18:58 Total Protein 6.8 gm/dl (6.0-8.3) 09/27/22 18:58 Albumin 3.6 gm/dl (3.4-5.0) 09/27/22 18:58 Globulin 3.2 gm/dl (2.5-4.0) 09/27/22 18:58 Albumin/Globulin Ratio 1.1 (0.9-2) 09/27/22 18:58 Urine Color Dark Yellow 09/28/22 09:44 Urine Appearance Clear (Clear) 09/28/22 09:44 Urine pH 5.5 (4.5-7.5) 09/28/22 09:[address] [place] 1.024 (1.000-1.030) 09/28/22 09:44 Urine Protein Trace (Negative) H 09/28/22 09:44 Urine Glucose (UA) Negative (Negative) 09/28/22 09:44 Urine Ketones Negative (Negative) 09/28/22 09:44 Urine Blood Negative (Negative) 09/28/22 09:44 Urine Nitrite Negative (Negative) 09/28/22 09:44 Urine Bilirubin Negative (Negative) 09/28/22 09:44 Urine Urobilinogen Negative (Negative) 09/28/22 09:44 Ur Leukocyte Esterase Negative (Negative) 09/28/22 09:44 Urine WBC (Auto) 1-5 /hpf (0-5) 09/28/22 09:44 Urine RBC (Auto) 0-4 /hpf (0-4) 09/28/22 09:44 U Hyaline Cast (Auto) 1-5 /lpf (0-5) 09/28/22 09:44 U Epithel Cells (Auto) >30 /lpf (0-5) H 09/28/22 09:44 Urine Bacteria (Auto) Negative (Negative) 09/28/22 09:44 SARS-CoV-2, RNA, NAAT NEGATIVE (NEGATIVE) 09/27/22 19:[address] 09/27/22 19:11 Exam(s): CT L SPINE EXAM: CT Lumbar Spine Without Intravenous Contrast CLINICAL HISTORY: Yue Trauma. TECHNIQUE: Axial computed tomography images of the lumbar spine without intravenous contrast. CTDI is 29.23 mGy and DLP is 1959.58 mGy-cm. Automated exposure control was utilized for the study. A dose lowering technique was utilized adhering to the principles of ALARA. COMPARISON: No relevant prior studies available. FINDINGS: Vertebrae: There is an acute compression fracture involving the L1 vertebral body with involvement of the right lateral endplate and superolateral right vertebral body cortex. There is focal depression of the vertebral body in a Schmorl's node type configuration, with more diffuse sclerosis and cortical irregularity along the superior endplate with only mild depression noted involving the left vertebral body. The loss of height at the focal depression is approximately 20%. The degree of height loss involving the left lateral vertebral body is approximately 5-10%. There is minimal buckling of the anterior cortex. There is no extension to the posterior cortex. No involvement of the pedicles or posterior elements. The remaining lumbar vertebral bodies demonstrate normal height without compression fracture. No anterolisthesis or retrolisthesis noted. The pedicles, facet joints, spinous processes and transverse processes are intact. Discs/spinal canal/neural foramina: Disc space narrowing with marginal hypertrophic changes and vacuum phenomenon are most notable at L2-3 and L4-5. Facet hypertrophic changes are noted at several levels bilaterally. Soft tissues: Unremarkable. IMPRESSION: 1. There is an acute compression fracture involving the L1 vertebral body with involvement of the right lateral endplate and superolateral right vertebral body cortex. There is focal depression of the vertebral body in a Schmorl's node type configuration, with more diffuse sclerosis and cortical irregularity along the superior endplate with only mild depression noted involving the left vertebral body. The loss of height at the focal depression is approximately 20%. The degree of height loss involving the left lateral vertebral body is approximately 5-10%. There is minimal buckling of the anterior cortex. There is no extension to the posterior cortex. No involvement of the pedicles or posterior elements. 2. The remaining lumbar vertebral bodies are intact without acute traumatic injury or significant acute traumatic abnormal alignment. Electronically signed by: Chris Aguilar MD 09/27/22 20:[address] 09/27/22 19:11 Exam(s): CT T SPINE EXAM: CT Thoracic Spine Without Intravenous Contrast CLINICAL HISTORY: Trauma. TECHNIQUE: Axial computed tomography images of the thoracic spine without intravenous contrast. CTDI is 29.23 mGy and DLP is 1959.58 mGy-cm. Automated exposure control was utilized for the study. A dose lowering technique was utilized adhering to the principles of ALARA. COMPARISON: No relevant prior studies available. FINDINGS: Vertebrae: There is an acute compression fracture involving the L1 vertebral body with involvement of the right lateral endplate and superolateral right vertebral body cortex. The L1 vertebral body is incompletely included. However, there is focal depression of the vertebral body and a Schmorl's node type configuration with more diffuse sclerosis and cortical irregularity noted. No extension to the posterior cortex noted, where included. No definite involvement of the pedicles. The posterior elements are incompletely included. The thoracic vertebral bodies are intact without compression fracture. No anterolisthesis or retrolisthesis. The pedicles and posterior elements are intact. Incidental note is made of a right C7 cervical rib. Anterior hypertrophic osteophyte changes noted at several intervertebral levels. Discs/spinal canal/neural foramina: No acute findings. No spinal canal stenosis. Soft tissues: Unremarkable. No significant acute paraspinal soft tissue abnormality identified. IMPRESSION: 1. There is an acute compression fracture involving the L1 vertebral body with involvement of the right lateral endplate and superolateral right vertebral body cortex. The L1 vertebral body is incompletely included. However, there is focal depression of the vertebral body and a Schmorl's node type configuration with more diffuse sclerosis and cortical irregularity noted. No extension to the posterior cortex noted, where included. No definite involvement of the pedicles. The posterior elements are incompletely included. 2. No acute traumatic injury or significant abnormal alignment involving the thoracic spine. 3. Incidental right cervical C7 rib. Electronically signed by: Chris Aguilar MD 09/27/22 20:30 PM Foot X-Ray 09/27/22 19:12 RIGHT FOOT 3 VIEWS CLINICAL HISTORY: Fall. Right foot injury. FINDINGS: 3 views of the right foot are obtained. No prior studies are available for comparison at the time of dictation. The skeletal structures are osteopenic. There is a minimally displaced fracture through the base of the fifth metatarsal with overlying soft tissue edema. No additional acute fracture is seen. There is mild/moderate osteoarthritic change at the first metatarsophalangeal joint. Degenerative change is also seen at the tarsometatarsal joints. Degenerative spurring is seen along the dorsal aspect of the tarsal bones. There are large dorsal and plantar heel spurs. IMPRESSION: Mildly displaced fracture through the base of the fifth metatarsal. Electronically signed by: Edward Cavazos M.D. 09/28/2022 7:18 AM
--- NOTE | 2022-09-28 16:39 | Hospitalist Progress Note ---
Date of Service September 28, 2022 Assessment & Plan (1) Fracture of lumbar spine: (2) Fracture of fifth metatarsal bone: Plan: Per admitting service notes with addendum: ASSESSMENT AND PLAN: A 66-year-old female, who presents with mechanical fall while getting up from the toilet and L1 compression fracture. 1. Mechanical fall and L1 compression fracture: The foot x-ray also has fifth metatarsal fracture of the left foot and ER is trying to place a walking boot and also pain control and ortho consult. PT, OT. Monitor in the hospital. Will continue his home pain medications for herMS Contin and hydrocodone/acetaminophen p.r.n. and use Tylenol as needed.Also ordered Dilaudid prn. . Continue his home cyclobenzaprine p.r.n. / Pain well controlled Continue PT and OT evaluation Fifth metatarsal, mildly displaced fracture Ortho consulted, recommend walking boot, weightbearing as tolerated 2. Morbid obesity counselling 3. History of gastric bypass surgery. 4. History of post-traumatic stress disorder, generalized anxiety disorder, major depression: Continue her home medications of bupropion, venlafaxine. 5. Gastroesophageal reflux disease: On omeprazole. 6. Deep venous thrombosis prophylaxis: Placed on Lovenox. DISPOSITION: Patient prefers to be discharged home Anticipate tomorrow Admission and Anticipated Discharge Date Admission Date: September 27, 2022 Subjective Follow-up for lumbar compression fracture, metatarsal fracture, etc. Seen sitting up in bed, just finished physical therapy Reports pain is well controlled overall Pain got worse with physical therapy no chest pain, dyspnea, palpitations, dizziness No other new symptoms Review of Systems Review of Systems: all noted and negative except for above Physical Exam Physical Exam: General- oriented x 3, not in distress, speaks in sentences with no effort or accessory muscle use Eyes- anicteric Neck- no JVD Lungs- clear breath sounds bilaterally, no rales/wheezes Heart- normal rate, regular rhythm; no murmurs Abdomen- normal bowel sounds, nondistended, soft, nontender Extremities- no pretibial edema, no calf tenderness Back- (+) tenderness on the mid to lower back Neuro- alert, oriented x 3; no gross focal neurologic deficits Skin- warm & dry Results & Data Results & Data ([facility]) Vital Signs (Past 12 Hours) Vital Signs Temp Pulse Pulse Resp BP BP Pulse Ox 09/28/22 14:37 36.7 C 75 16 147/81 H 96 09/28/22 07:45 36.7 C 62 16 107/53 L 94 O2 Del Method 09/28/22 14:37 Room Air 09/28/22 07:45 Room Air all noted and reviewed including below (1) Fracture of lumbar spine Encounter type: initial encounter Fracture morphology: unspecified fracture morphology Fracture type: closed Lumbar vertebra fracture level: L1 Qualified Code(s): S32.019A - Unspecified fracture of first lumbar vertebra, initial encounter for closed fracture
[2022-09-29] MEDS: HYDROmorphone INJ 0.5 MG/0.5 ML SYR IV PRN (01:15)
[2022-09-29] MEDS: HYDROCODONE/ACETAMOPHEN 5/325MG TAB PO PRN ×2 (06:30→13:34)
[2022-09-29 07:31] VITALS: TEMP 98.4; O2SAT 94
[2022-09-29] MEDS: LIDOCAINE 5% 1 PATCH TD SCH (08:53)
[2022-09-29] MEDS: buPROPion HCl 100 MG TABLET PO SCH ×2 (08:54→13:33)
[2022-09-29] MEDS: VENLAFAXINE HCL 37.5 MG TAB PO SCH ×2 (08:55→13:32)
[2022-09-29] MEDS: PANTOprazole 40 MG TAB PO SCH (08:56)
[2022-09-29] MEDS: CHOLECALCIFEROL 1,000 UNITS 25 MCG TAB PO SCH (08:56)
[2022-09-29] MEDS: ENOXAPARIN INJ 40 MG/0.4 ML SYR SQ SCH (08:57)
[2022-09-29] MEDS: MoRPHine SULFATE CR 15 MG TABCR PO SCH (08:59)
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
[2022-09-29 11:58] VITALS: BP 107/53; PULSE 79
== END 2022-09-29 15:23 | disposition home or self-care (01) | DRG 552 ==
LOC: ED 18:49 → 3W 23:51